=== PATIENT | male | born 1955 | race Caucasian/White ===

== ENCOUNTER → 2018-03-19 | Outpatient (CLI) | payer OTHER ==
[~2018-03-19] MED LIST: OMNIPAQUE 350 MG/ML, 100ML BOTTLE ONE
== END | disposition home or self-care (01) ==
LOC: CFH 13:19
PROVIDERS: ATTEND Nurse Practitioner Family
DX: I72.3 Aneurysm of iliac artery (principal); I71.01 Dissection of thoracic aorta; I77.71 Dissection of carotid artery; I77.79 Dissection of other specified artery; G12.9 Spinal muscular atrophy, unspecified
CPT/HCPCS: 71275; 74174; Q9967

== ENCOUNTER → 2018-08-21 | Outpatient (CLI) | payer OTHER | END | disposition home or self-care (01) | LOC: CFH 12:13 | PROVIDERS: ATTEND Internal Medicine | DX: I08.0 Rheumatic disorders of both mitral and aortic valves (principal); I71.01 Dissection of thoracic aorta; I71.02 Dissection of abdominal aorta; I72.3 Aneurysm of iliac artery; I10 Essential (primary) hypertension; H53.9 Unspecified visual disturbance; E78.5 Hyperlipidemia, unspecified; G62.9 Polyneuropathy, unspecified; M47.819 Spondylosis without myelopathy or radiculopathy, site unspecified | CPT/HCPCS: 71275; 74174; 82565; 93306; Q9967 ==

== ENCOUNTER → 2018-09-20 | Outpatient (CLI) | payer OTHER | END | disposition home or self-care (01) | LOC: CFH 08:01 | PROVIDERS: ATTEND Internal Medicine | DX: I77.71 Dissection of carotid artery (principal) | CPT/HCPCS: 93880 ==

== ENCOUNTER → 2019-06-02 | Outpatient (CLI) | payer OTHER | END | disposition home or self-care (01) | LOC: CFH 13:07 | PROVIDERS: ATTEND Internal Medicine | DX: I71.02 Dissection of abdominal aorta (principal); M47.819 Spondylosis without myelopathy or radiculopathy, site unspecified | CPT/HCPCS: 71275; 74174; 82565; Q9967 ==